=== PATIENT | female | born 1945 | race Caucasian/White ===

== ENCOUNTER 2021-03-14 11:05 | Outpatient (REF) | payer MEDICARE, SELFPAY ==
--- NOTE | ~2021-03-14 | MM_ITS ---
EXAMINATION: BONE DENSITOMETRY CLINICAL INDICATION: Osteoporosis. COMPARISON: Previous BD dated 03/14/2019 and baseline BD dated 03/06/2006. TECHNIQUE: Using a [email or web address] DXA System (software version: 13.1) manufactured by [email or web address], dual-energy x-ray absorptiometry was performed of the lumbar spine and left hip. The images are of good technical quality. Summary results are attached. FINDINGS: AP SPINE L1-L3 (excluding L4): The data of L1-L4 has been changed to exclude the L4 vertebral body, because degenerative changes at this level may cause overestimation of lumbar spine density. Current: BMD 0.878 g/cm2, Z-score -0.2, T-score -2.4, osteopenia, 2.1% increase from previous, 1.2% increase from baseline (<5% change is not significant). Prior: BMD 0.860 g/cm2. Baseline: BMD 0.868 g/cm2. LEFT FEMUR, NECK: Current: BMD 0.827 g/cm2, Z-score 0.7, T-score -1.5, osteopenia. Prior: BMD 0.812 g/cm2. Baseline: BMD 0.828 g/cm2. LEFT FEMUR, TOTAL: Current: BMD 0.903 g/cm2, Z-score 1.3, T-score -0.8, normal, 7.9% increase from previous, 2.4% increase from baseline (<5% change is not significant). Prior: BMD 0.837 g/cm2. Baseline: BMD 0.882 g/cm2. IDENTIFIED RISK FACTORS: Menopause, hysterectomy, glucocorticoids (chronic), history of fracture (adult), osteoporosis. HISTORY OF FRACTURE: Clavicle, wrist, and ankle. MEDICATIONS: Calcium, vitamin D, Prolia, ERT/SERMS. MM/XR DEXA axial skeleton IMPRESSION: 1. DIAGNOSIS: Osteopenia based on the lowest T-score value of -2.4 in the lumbar spine applying World Health Organization criteria. 2. 10-YEAR FRACTURE RISK PREDICTION, FRAX: Major osteoporotic fracture (clinical spine, forearm, hip or shoulder) 22.6%. Hip fracture 5.1%. 3. Treatment Recommendations: NOF guidelines recommend consideration for treatment in postmenopausal women and men age 50 and older presenting with the following: -A hip or vertebral (clinical or morphometric) fracture. -T-score less than or equal to -2.5 at the femoral neck or spine after appropriate evaluation to exclude secondary causes. -Low bone mass at the hip or spine and a 10-year fracture probability by FRAX of greater than or equal to 3% for hip fracture or greater than or equal to 20% for major osteoporotic fracture based on the [place] adapted WHO algorithm. 4. Other Recommendations: All treatment decisions require clinical judgment and consideration of individual patient factors, including patient preferences, comorbidities, previous drug use, risk factors not captured in the FRAX model (e.g. frailty, falls, vitamin D deficiency, increased bone turnover, interval significant decline in bone density) and possible under or overestimation of fracture risk by FRAX. Additional medical evaluation for secondary cause of low bone mineral density may be appropriate. FUTURE SCAN RECOMMENDATION: People with diagnosed cases of osteoporosis or at high risk for fracture should have regular bone mineral density tests. For patients eligible for Medicare, routine testing is allowed once every 2 years. The testing frequency can be increased to one year for patients who have rapidly progressing disease, those who are receiving or discontinuing medical therapy to restore bone mass, or have additional risk factors.
== END 2021-03-14 11:06 | disposition home or self-care (01) ==
LOC: HO.MAMMO 11:05
PROVIDERS: PCP Internal Medicine; Visit Provider Internal Medicine Endocrinology, Diabetes & Metabolism
DX: Z13.820 Encounter for screening for osteoporosis (principal); M81.0 Age-related osteoporosis without current pathological fracture; Z78.0 Asymptomatic menopausal state; Z79.899 Other long term (current) drug therapy
CPT/HCPCS: 77080

== ENCOUNTER 2023-04-10 10:39 | Outpatient (REF) | payer MEDICARE, SELFPAY ==
--- NOTE | ~2023-04-10 | MM_ITS ---
EXAMINATION: BONE DENSITOMETRY CLINICAL INDICATION: Age-related osteoporosis without current pathological fracture. COMPARISON: Previous BD dated 03/14/2021 and baseline BD dated 03/06/2006. TECHNIQUE: Using a [employer] DXA System (software version: 13.1) manufactured by [employer], dual-energy x-ray absorptiometry was performed of the lumbar spine and left hip. The images are of good technical quality. Summary results are attached. FINDINGS: LEFT FEMUR, NECK: Current: BMD 0.852 g/cm2, Z-score 1.0, T-score -1.3, osteopenia. Prior: BMD 0.827 g/cm2. Baseline: BMD 0.828 g/cm2. LEFT FEMUR, TOTAL: Current: BMD 0.912 g/cm2, Z-score 1.4, T-score -0.8, normal, 1.0% increase from previous, 3.4% increase from baseline (<5% change is not significant). Prior: BMD 0.903 g/cm2. Baseline: BMD 0.882 g/cm2. AP SPINE L1-L3 (excluding L4): The data of L1-L4 has been changed to exclude the L4 vertebral body, because degenerative sclerosis at this level may cause overestimation of lumbar spine density. Current: BMD 0.898 g/cm2, Z-score 0.0, T-score -2.3, osteopenia, 2.3% increase from previous, 3.5% increase from baseline (<5% change is not significant). Prior: BMD 0.878 g/cm2. Baseline: BMD 0.868 g/cm2. IDENTIFIED RISK FACTORS: Osteoporosis, history of fracture (adult), menopause, hysterectomy. HISTORY OF FRACTURE: Wrist, shoulder, other. MEDICATIONS: Calcium supplements or multivitamin, vitamin D, Prolia. MM/XR DEXA axial skeleton IMPRESSION: 1. DIAGNOSIS: Osteopenia based on the lowest T-score value of -2.3 in the lumbar spine applying World Health Organization criteria. 2. 10-YEAR FRACTURE RISK PREDICTION, FRAX: Not performed in this patient on estrogen or bone building treatments. 3. Treatment Recommendations: NOF guidelines recommend consideration for treatment in postmenopausal women and men age 50 and older presenting with the following: -A hip or vertebral (clinical or morphometric) fracture. -T-score less than or equal to -2.5 at the femoral neck or spine after appropriate evaluation to exclude secondary causes. -Low bone mass at the hip or spine and a 10-year fracture probability by FRAX of greater than or equal to 3% for hip fracture or greater than or equal to 20% for major osteoporotic fracture based on the [place] adapted WHO algorithm. 4. Other Recommendations: All treatment decisions require clinical judgment and consideration of individual patient factors, including patient preferences, comorbidities, previous drug use, risk factors not captured in the FRAX model (e.g. frailty, falls, vitamin D deficiency, increased bone turnover, interval significant decline in bone density) and possible under or overestimation of fracture risk by FRAX. Additional medical evaluation for secondary cause of low bone mineral density may be appropriate. FUTURE SCAN RECOMMENDATION: People with diagnosed cases of osteoporosis or at high risk for fracture should have regular bone mineral density tests. For patients eligible for Medicare, routine testing is allowed once every 2 years. The testing frequency can be increased to one year for patients who have rapidly progressing disease, those who are receiving or discontinuing medical therapy to restore bone mass, or have additional risk factors.
== END 2023-04-10 10:40 | disposition home or self-care (01) ==
LOC: HO.MAMMO 10:39
PROVIDERS: PCP Internal Medicine; Visit Provider Internal Medicine Endocrinology, Diabetes & Metabolism
DX: Z13.820 Encounter for screening for osteoporosis (principal); Z78.0 Asymptomatic menopausal state; M81.0 Age-related osteoporosis without current pathological fracture
CPT/HCPCS: 77080

== ENCOUNTER 2024-06-12 13:58 | Outpatient (REF) | payer MEDICARE, SELFPAY ==
--- NOTE | ~2024-06-12 | MM_ITS ---
EXAMINATION: DXA BONE DENSITY AXIAL HISTORY: Estrogen deficiency TECHNIQUE: [employer] Dual energy absorptiometry (DEXA) of the lumbar spine, total left hip, and femoral neck was performed. COMPARISON: Comparison is made with the prior examination dated 04/10/2023. FINDINGS: The bone mineral density of the lumbar spine is 0.849 with a T-score of -2.6, and a Z-score of -0.4. This represents a BMD change of 4.7% compared to the prior exam. This is not statistically significant. The bone mineral density of the left total hip is 0.919 with a T-score of -0.7, and a Z-score of 1.5. This represents BMD change of 0.8% compared to the prior exam. This is not statistically significant. The bone mineral density of the left femoral neck is 0.916 with a T-score of -0.9, and a Z-score of 1.5. This represents BMD change of 7.5% compared to the prior exam. MM/XR DEXA axial skeleton IMPRESSION: Based on bone mineral density, and according to World Health Organization (WHO) criteria, the diagnosis is consistent with osteoporosis. All bone density values are in grams per centimeter squared (g/cm2). Statistically, 68% of repeat scans fall within 1 SD (+/- 0.010 g/cm2 for AP spine L1-L4) and 1 SD (+/- 0.012 g/cm2 for femur total) FRAX is a trademark of the [employer]'s [place] for Metabolic Bone Disease, a World Health Organization (WHO) Collaborating Center. Electronically signed by: Nathaniel Cole MD 06/16/2024 12:25 PM [facility]
--- OUTSIDE RECORDS SUMMARY | 2024-06-12 17:52 | XMS_ITS | Data Portability ---
Author Organization [facility], , [facility] Address [address] [place] [address] Care Team Providers Care Linux Solaris Administrator Name Role Phone VÍCTOR MUELLER Primary Care Provider TITI CABRERA Dental Amalgam Processor Unavailable KARYN DWYER Physical Therapist Assessment Encounter Date Assessment Date Assessment LastModified by Organization Details LastModified Time 05/16/2022 05/16/2022 Osteoporosis on Prolia. 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 Also [employer]. [place] in [place] with Don Kroodsma Hyperlipidemia. 2020- agrees to start small dose of statin. PCP suggested prava which seems fine. 2021: PCP providing Rx. [email or web address] Not available 05/16/2022 14:24:38 05/15/2023 05/15/2023 Osteoporosis on Prolia since 05/2015. 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 Also [employer]. [place] in [place] with Don Kroodsma Hyperlipidemia. 2020- agrees to start small dose of statin. PCP suggested prava which seems fine. Since 2021: PCP providing Rx. Prava up to 40mg. also on cholestyramine for GI but that will also help LDL. Enhanced Provider time spent performing enhanced activities which may include, but are not limited to: reviewing tests, obtaining and/or reviewing patient history; ordering medications, test or procedures; EMR documentation; communication with patient, family, caregiver(s), VNA; pre-visit prep time communication with specialists, ER staff. Time spent: 36 (minutes) 06/06 [email or web address] Not available 05/15/2023 19:33:11 05/01/2024 05/01/2024 Osteoporosis on Prolia since 05/2015. 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 Also hikes. [place] in [place] with Teodoro Chin Hyperlipidemia. 2020- agrees to start small dose of statin. PCP suggested prava which seems fine. Since 2021: PCP providing Rx. Prava up to 40mg. also on cholestyramine for GI but that will also help LDL. Enhanced Provider time spent performing enhanced activities which may include, but are not limited to: reviewing tests, obtaining and/or reviewing patient history; ordering medications, test or procedures; EMR documentation; communication with patient, family, caregiver(s), VNA; pre-visit prep time communication with specialists, ER staff. Time spent: 38 (minutes) 05/06 05/06: order BMD ([place]). Check for markers of adynamic bone. Prolia today given when checked in. Review need to continue (given osteopenia on prev BMD)- may consider transition. Given very low NTx, check bone ALK PHOS (r/o adynamic bone) [email or web address] Not available 05/06/2024 15:32:20 Plan of Treatment Reminders Order Date Submit Date Provider Last Modified By Organization Details Last Modified Time Details Appointments Follow Up, 40 2024 09:00A Patty Cabrera MD Not available Not available Not available Follow Up, 40 2024 02:00P Patty Cabrera MD Not available Not available Not available Lab vitami n D, 25-hyd nancy, total, serum 2022 023 [facility], [address] [place] [address], [id number], 10/23/2022 14:10:08 renal functi on panel, serum 2022 023 [facility], [address] [place], [address], 10/24/2022 10:17:22 magnes ium, blood 2022 023 [facility], [address] [place] [address], [id number], 10/24/2022 10:17:23 vitami n D, 25-hyd nancy, total, serum 2022 023 [facility], [address] [place] [address], [id number], 04/30/2023 14:30:04 renal functi on panel, serum 2022 023 [facility], [address] [place] [address], [id number], 05/01/2023 09:28:59 magnes ium, blood 2022 023 [facility], [address] [place] [address], [id number], 05/01/2023 09:29:02 lipid panel, serum 2022 023 [facility], [address] [place] [address], [id number], 10/24/2022 10:17:21 lipid panel, serum 2022 023 [facility], [address] [place] [address], [id number], 05/01/2023 09:28:57 thyroi d peroxi dase (tpo) Ab, serum 2023 024 [facility], [address] [place] [address], [id number], 11/05/2023 14:01:10 TSH, serum or plasma 2023 024 [facility], [address] [place] [address], [id number], 11/02/2023 12:18:55 T4, free, serum 2023 024 [facility], [address] [place] [address], [id number], 11/02/2023 11:55:25 T4, free, serum 2023 024 [facility], [address] [place] [address], [id number], 04/23/2024 12:45:02 TSH, serum or plasma 2023 024 [facility], [address] [place] [address], [id number], 04/23/2024 14:29:19 magnes ium, blood 2023 024 [facility], [address] [place] [address], [id number], 11/02/2023 11:56:25 renal functi on panel, serum 2023 024 [facility], [address] [place] [address], [id number], 11/02/2023 11:56:25 collag en cross- linked N-telo peptid e (ntx), urine 2023 024 [facility], [address] [place] [address], [id number], 11/07/2023 14:13:55 vitami n D, 25-hyd nancy, total, serum 2023 024 [facility], [address] [place] [address], [id number], 11/02/2023 12:18:56 renal functi on panel, serum 2023 024 [facility], [address] [place] [address], [id number], 04/18/2024 13:10:08 magnes ium, blood 2023 024 [facility], [address] [place] [address], [id number], 04/18/2024 13:10:09 vitami n D, 25-hyd nancy, total, serum 2023 024 [facility], [address] [place] [address], [id number], 04/23/2024 14:29:19 collag en cross- linked N-telo peptid e (ntx), urine 2023 024 [facility], [address] [place] [address], [id number], 04/28/2024 12:18:15 thyroi d peroxi dase (tpo) Ab, serum 2023 024 [facility], [address] [place] [address], [id number], 06/02/2024 15:27:35 magnes ium, blood 2023 025 [facility], [address] [place] [address], [id number], 05/02/2024 11:28:34 renal functi on panel, serum 2023 025 [facility], [address] [place] [address], [id number], 05/02/2024 11:28:34 collag en cross- linked N-telo peptid e (ntx), urine 2023 025 [facility], [address] [place] [address], [id number], 05/02/2024 11:28:34 vitami n D, 25-hyd nancy, total, serum 2023 025 [facility], [address] [place] [address], 94076, 05/02/2024 11:28:34 alkali ne phosph atase, bone-s pecifi c, serum 2023 025 [facility], [address] [place] [address], [id number], 05/26/2024 13:08:00 PTH (parat hyroid hormon e), intact , serum or plasma 2023 025 [facility], [address] , [place], [address], 06/02/2024 15:30:00 Referral None record ed. Procedures None record ed. Surgeries None record ed. Imaging bone densit y - Please make sure done at same facili ty as before ([facility] Please report t-scor es all sites (both hips and spine and forear m)./la st was 1 2022 023 [facility], [address] [place] [address] [place], [id number], 04/12/2023 18:24:31 bone densit y - On prolia . Needs update for mediat ion monito ring.H x osteop orosis on Prolia .Pleas e provid e t-scor es for spine (speci fy which verteb cassie) and both hips. 2023 024 [facility], [facility], [place], [address], 05/08/2024 08:37:36 Medication Orders Prolia 60 mg/mL subcut aneous syring e 2022 023 sstuartchipki n [facility], [address], [address], [place], [place], [id number], 10/31/2022 19:03:15 Prolia 60 mg/mL subcut aneous syring e 2023 024 sstuartchipki n [facility], [address], [address], [place], [place], [id number], 05/15/2023 19:33:39 Prolia 60 mg/mL subcut aneous syring e 2023 024 sstuartchipki n [facility], [address], [address], [place], [place], [id number], 11/13/2023 19:05:43 Prolia 60 mg/mL subcut aneous syring e 2023 024 sstta n [facility], [address], [facility] [address], [place], [place], [id number], 05/06/2024 15:35:17 Patient TargetsNo targets recorded. Patient Instructions Encounter Date Encounter Id Patient Instructions Last Modified By Organization Details Last Modified Time 05/16/2022 [id number] - Continue to ta ke calcium (0326-6361 mg per day) and vitamin D (5292-9897 units per day). - Consider looking for opportunities for exercise or balance classes to help prevent falls. - Continue on pravastatin. Take in the evening. If any worsening of muscle aches/pains, stop medication and contact office. Not available 05/16/2022 09:19:27 1 year 40 min. Not available 0 05/16/2022 09:19:27 05/15/2023 [id number] - Continue to ta ke calcium (2526-8954 mg per day) and vitamin D (7056-2565 units per day). - Consider looking for opportunities for exercise or balance classes to help prevent falls. [email or web address] Not available 05/15/2023 19:31:20 Major but rare side effects of Prolia (and for most osteoporosis medications) are risk for atypical/unusual fractures and a risk for destruction of jaw bone (called osteonecrosis of jaw or ONJ). Prolia, when used for osteoporosis had rates about 0.4% (4-6 out of 1500 patients) followed for several years. Some patients have a decrease in calcium values after the Prolia injection- we check calcium levels periodically to make sure there is no significant change. The most common side effect from Prolia is some musculoskeletal (bone and joint) pain sometimes in the back or the extremities. Although the effect of the drug lasts 6 months, that doesn't mean it is circulating in your blood for that time. Prolia acts on a particular cellular messenger and the impact of that is what lasts 6 months. [email or web address] Not available 05/15/2023 19:32:31 05/01/2024 [id number] - Continue to ta ke calcium (4616-0149 mg per day) and vitamin D (2292-4401 units per day). - Consider looking for opportunities for exercise or balance classes to help prevent falls. [email or web address] Not available 05/06/2024 15:32:29 Major but rare side effects of Prolia (and for most osteoporosis medications) are risk for atypical/unusual fractures and a risk for destruction of jaw bone (called osteonecrosis of jaw or ONJ). Prolia, when used for osteoporosis had rates about 0.4% (4-6 out of 1500 patients) followed for several years. Some patients have a decrease in calcium values after the Prolia injection- we check calcium levels periodically to make sure there is no significant change. The most common side effect from Prolia is some musculoskeletal (bone and joint) pain sometimes in the back or the extremities. Although the effect of the drug lasts 6 months, that doesn't mean it is circulating in your blood for that time. Prolia acts on a particular cellular messenger and the impact of that is what lasts 6 months. [email or web address] Not available 05/06/2024 15:32:35 Reason for Referral None Reported. Results Created Date Observation Date Name Description Value Unit Range Abnormal Flag Note LastModifiedBy Organization Detail LastModifiedTime 04/28/20 22 04/28/2022 LIPID PANEL cholesterol 229 mg/dL <200 mg/dl Austyn able 200-2 39 mg/dl Borde rline High >240 mg/dl High Not Available [address], [address], 04/28/2022 15:15:44 04/28/20 22 04/28/2022 LIPID PANEL triglyceride s 56 mg/dL <150 mg/dL Madelaine l 150-1 99 mg/dL Borde rline High 200-4 99 mg/dL High >500 mg/dL Very High Not Available [address], [address], 04/28/2022 15:15:44 04/28/2004/28/2022 LIPID PANEL direct HDL 103 mg/dL <40 mg/dl - Major Risk for CHD >60 mg/dl - Negat momo Risk for CHD Not Available [address], [address], 04/28/2022 15:15:44 04/28/20 22 04/28/2022 PHOSP HOROU S phosphorous 4.40 mg/dL 2.50-4 .90 Not Available [address], [address], 04/28/2022 15:15:45 04/28/20 22 04/28/2022 MAGNE SIUM magnesium 2.0 mg/dL 1.8-2. 4 Not Available [address], [address], 04/28/2022 15:15:46 04/28/20 22 04/28/2022 LDL - CALCU LATED LDL - calculated 114.8 RISK CATEG ORY LDL GOAL _ CHD or CHD Risk Equiv alent s <100 mg/dl (10-y ear risk >20%) 2+ Risk Facto rs <130 mg/dl (10-y ear risk <= 20%) 0-1 Risk Facto r? <160 mg/dl ? Almos t all peopl e with 0-1 risk facto r have a 10 year risk <10%, thus 10 year risk asses ment in peopl e with 0-1 risk facto r is not della alexander. Not Available [address], [address], 04/28/2022 15:15:47 04/28/20 22 04/28/2022 COMP. METAB OLIC PANEL glucose 91 mg/dL 70-100 Not Available [address], [address], 04/28/2022 15:24:45 04/28/20 22 04/28/2022 COMP. METAB OLIC PANEL BUN 21 mg/dL 7-18 high Not Available [address], [address], 04/28/2022 15:24:45 04/28/20 22 04/28/2022 COMP. METAB OLIC PANEL creatinine 0.8 mg/dL 0.8-1. 3 Not Available [address], [address], 04/28/2022 15:24:45 04/28/20 22 04/28/2022 COMP. METAB OLIC PANEL B/C 26.3 ratio Not Available [address], [address], 04/28/2022 15:24:45 04/28/20 22 04/28/2022 COMP. METAB OLIC PANEL GFR >=60ML /MIN mL/mi n normal >=60m L/min - Madelaine l or midly reduc ed <60mL /min- Decre ased kidne y funct ion <15mL /min - Kidne y failu re [facility] calcu lates estim ated Glome rular Filtr ation Rate (eGFR ) using the Chron ic Kidne y Disea se Epide miolo gy Colla borat ion (CKD- EPI) Equat ion (Mai r et. al 2020) as recom ivelisse d by the Natio nal Kidne y Found ation . eGFR is based on age, serum creat inine , and sex. CKD-E PI does not calcu late eGFR by race, does not apply to child zach (age <18 years ), and shoul d not be used in pregn zachery. Not Available [address], [address], 04/28/2022 15:24:45 04/28/20 22 04/28/2022 COMP. METAB OLIC PANEL sodium 139 mmol/ L 136-14 5 Not Available [address], [address], 04/28/2022 15:24:45 04/28/20 22 04/28/2022 COMP. METAB OLIC PANEL potassium 4.5 mmol/ L 3.5-5. 1 Not Available [address], [address], 04/28/2022 15:24:45 04/28/20 22 04/28/2022 COMP. METAB OLIC PANEL chloride 103 mmol/ L 96-107 Not Available [address], [address], 04/28/2022 15:24:45 04/28/20 22 04/28/2022 COMP. METAB OLIC PANEL anion gap 5.7 5.0-15 .0 Not Available [address], [address], 04/28/2022 15:24:45 04/28/20 22 04/28/2022 COMP. METAB OLIC PANEL CO2 30 mmol/ L 21-32 Not Available [address], [address], 04/28/2022 15:24:45 04/28/20 22 04/28/2022 COMP. METAB OLIC PANEL calcium 9.2 mg/dL 8.5-10 .3 Not Available [address], [address], 04/28/2022 15:24:45 04/28/20 22 04/28/2022 COMP. METAB OLIC PANEL total protein 6.9 g/dL 6.4-8. 2 Not Available [address], [address], 04/28/2022 15:24:45 04/28/20 22 04/28/2022 COMP. METAB OLIC PANEL albumin 3.9 g/dL 3.4-5. 0 Not Available [address], [address], 04/28/2022 15:24:45 04/28/20 22 04/28/2022 COMP. METAB OLIC PANEL globulin 3.0 g/dL Not Available [address], [address], 04/28/2022 15:24:45 04/28/20 22 04/28/2022 COMP. METAB OLIC PANEL A/G 1.3 ratio 0.8-2. 0 Not Available [address], [address], 04/28/2022 15:24:45 04/28/20 22 04/28/2022 COMP. METAB OLIC PANEL total bilirubin 0.40 mg/dL 0.00-1 .00 Not Available [address], [address]365, 04/28/2022 15:24:45 04/28/20 22 04/28/2022 COMP. METAB OLIC PANEL AST 26 U/L 0-37 Not Available [address], [address], 04/28/2022 15:24:45 04/28/20 22 04/28/2022 COMP. METAB OLIC PANEL ALT 34 U/L 6-63 Not Available [address], [address], 04/28/2022 15:24:45 04/28/20 22 04/28/2022 COMP. METAB OLIC PANEL alk. phos. 67 U/L 50-136 Not Available [address], [address], 04/28/2022 15:24:45 04/28/20 22 04/28/2022 VITAM IN D 25-HY DROXY TOTAL vitamin D 25-hydroxy EIA 41.1 NG/mL 20.0-9 9.9 Thera py is based on measu remen t of total 25-OH D, with level s less than 20 ng/mL indic ative of Vitam in D defic iency . Level s betwe en 20ng/ mL and 30 ng/mL sugge st insuf ficie ncy. Optim al Level s are great er than 30 ng/mL . Not Available [address], [address], 04/28/2022 15:39:50 04/28/20 22 04/28/2022 TSH TSH 4.08 uIU/m L 0.50-6 .00 The Ameri can Colle ge of Endoc rinol ogy and Col[facility] can Thyro id Assoc iatio n recom mend goal TSH value s betwe en 0.4-4 .0 mIU/m L. Not Available [address], [address], 04/28/2022 15:46:45 10/24/19 23 10/23/2022 VITAM IN D 25-HY DROXY TOTAL vitamin D 25-hydroxy EIA 43.1 NG/mL 20.0-9 9.9 Thera py is based on measu remen t of total 25-OH D, with level s less than 20 ng/mL indic ative of Vitam in D defic iency . Level s betwe en 20ng/ mL and 30 ng/mL sugge st insuf ficie ncy. Optim al Level s are great er than 30 ng/mL . Not Available [address], [address], 10/23/2022 14:10:07 10/24/19 23 10/24/2022 LIPID PANEL cholesterol 207 mg/dL <200 mg/dl Austyn able 200-2 39 mg/dl Borde rline High >240 mg/dl High Not Available [address], [address], 10/24/2022 10:17:21 10/24/19 23 10/24/2022 LIPID PANEL triglyceride s 52 mg/dL <150 mg/dL Madelaine l 150-1 99 mg/dL Borde rline High 200-4 99 mg/dL High >500 mg/dL Very High Not Available [address], [address], 10/24/2022 10:17:21 10/24/19 23 10/24/2022 LIPID PANEL direct HDL 90 mg/dL <40 mg/dl - Major Risk for CHD >60 mg/dl - Negat momo Risk for CHD Not Available [address], [address], 10/24/2022 10:17:21 10/24/19 23 10/24/2022 RENAL PANEL glucose 89 mg/dL 70-100 Not Available [address], [address], 10/24/2022 10:17:22 10/24/19 23 10/24/2022 RENAL PANEL BUN 19 mg/dL 7-18 high Not Available [address], [address], 10/24/2022 10:17:22 10/24/19 23 10/24/2022 RENAL PANEL creatinine 0.7 mg/dL 0.8-1. 3 low Not Available [address], [address], 10/24/2022 10:17:22 10/24/19 23 10/24/2022 RENAL PANEL B/C 27.1 ratio Not Available [address], [address], 10/24/2022 10:17:22 10/24/19 23 10/24/2022 RENAL PANEL GFR >=60ML /MIN mL/mi n normal >=60m L/min - Madelaine l or midly reduc ed <60mL /min- Decre ased kidne y funct ion <15mL /min - Kidne y failu re [facility] calcu lates estim ated Glome rular Filtr ation Rate (eGFR ) using the Chron ic Kidne y Disea se Epide miolo gy Colla borat ion (CKD- EPI) Equat ion (Inke r et. al 2020) as recom ivelisse d by the Natio nal Kidne y Found ation . eGFR is based on age, serum creat inine , and sex. CKD-E PI does not calcu late eGFR by race, does not apply to child zach (age <18 years ), and shoul d not be used in pregn zachery. Not Available [address], [address], 10/24/2022 10:17:22 10/24/19 23 10/24/2022 RENAL PANEL sodium 139 mmol/ L 136-14 5 Not Available [address], [address], 10/24/2022 10:17:22 10/24/19 23 10/24/2022 RENAL PANEL potassium 4.5 mmol/ L 3.5-5. 1 Not Available [address], [address], 10/24/2022 10:17:22 10/24/19 23 10/24/2022 RENAL PANEL chloride 103 mmol/ L 96-107 Not Available [address], [address], 10/24/2022 10:17:22 10/24/19 23 10/24/2022 RENAL PANEL anion gap 7.8 5.0-15 .0 Not Available [address], [address], 10/24/2022 10:17:22 10/24/19 23 10/24/2022 RENAL PANEL CO2 28 mmol/ L 21-32 Not Available [address], [address], 10/24/2022 10:17:22 10/24/19 23 10/24/2022 RENAL PANEL calcium 9.0 mg/dL 8.5-10 .3 Not Available [address], [address], 10/24/2022 10:17:22 10/24/19 23 10/24/2022 RENAL PANEL albumin 3.9 g/dL 3.4-5. 0 Not Available [address], [address], 10/24/2022 10:17:22 10/24/19 23 10/24/2022 RENAL PANEL phosphorous 4.20 mg/dL 2.50-4 .90 Not Available [address], [address], 10/24/2022 10:17:22 10/24/19 23 10/24/2022 MAGNE SIUM magnesium 2.0 mg/dL 1.8-2. 4 Not Available [address], [address], 10/24/2022 10:17:23 10/24/19 23 10/24/2022 LDL - CALCU LATED LDL - calculated 106.6 RISK CATEG ORY LDL GOAL _ CHD or CHD Risk Equiv alent s <100 mg/dl (10-y ear risk >20%) 2+ Risk Facto rs <130 mg/dl (10-y ear risk <= 20%) 0-1 Risk Facto r? <160 mg/dl ? Almos t all peopl e with 0-1 risk facto r have a 10 year risk <10%, thus 10 year risk asses ment in peopl e with 0-1 risk facto r is not neces benjamin. Not Available [address], [address], 10/24/2022 10:17:24 04/27/20 23 04/30/2023 TSH TSH 5.42 uIU/m L 0.50-6 .00 The Ameri can Colle ge of Endoc rinol ogy and Ameri can Thyro id Assoc iatio n recom mend goal TSH value s betwe en 0.4-4 .0 mIU/m L. Not Available [address], [address], 04/30/2023 14:30:02 04/27/20 23 04/30/2023 VITAM IN D 25-HY DROXY TOTAL vitamin D 25-hydroxy EIA 42.3 NG/mL 20.0-9 9.9 Thera py is based on measu remen t of total 25-OH D, with level s less than 20 ng/mL indic ative of Vitam in D defic iency . Level s betwe en 20ng/ mL and 30 ng/mL sugge st insuf ficie ncy. Optim al Level s are great er than 30 ng/mL . Not Available [address], [address], 04/30/2023 14:30:04 04/27/20 23 05/01/2023 LIPID PANEL cholesterol 178 mg/dL <200 mg/dl Austyn able 200-2 39 mg/dl Borde rline High >240 mg/dl High Not Available [address], [address], 05/01/2023 09:28:57 04/27/2005/01/2023 LIPID PANEL triglyceride s 56 mg/dL <150 mg/dL Madelaine l 150-1 99 mg/dL Borde rline High 200-4 99 mg/dL High >500 mg/dL Very High Not Available [address], [address], 05/01/2023 09:28:57 04/27/20 23 05/01/2023 LIPID PANEL direct HDL 87 mg/dL <40 mg/dl - Major Risk for CHD >60 mg/dl - Negat momo Risk for CHD Not Available [address], [address], 05/01/2023 09:28:57 04/27/20 23 05/01/2023 RENAL PANEL glucose 86 mg/dL 70-100 Not Available [address], [address], 05/01/2023 09:28:59 04/27/20 23 05/01/2023 RENAL PANEL BUN 13 mg/dL 7-18 Not Available [address], [address], 05/01/2023 09:28:59 04/27/20 23 05/01/2023 RENAL PANEL creatinine 0.8 mg/dL 0.8-1. 3 Not Available [address], [address], 05/01/2023 09:28:59 04/27/20 23 05/01/2023 RENAL PANEL B/C 16.3 ratio Not Available [address], [address], 05/01/2023 09:28:59 04/27/20 23 05/01/2023 RENAL PANEL GFR >=60ML /MIN mL/mi n normal >=60m L/min - Madelaine l or midly reduc ed <60mL /min- Decre ased kidne y funct ion <15mL /min - Kidne y failu re [facility] calcu lates estim ated Glome rular Filtr ation Rate (eGFR ) using the Chron ic Kidne y Disea se Epide miolo gy Colla borat ion (CKD- EPI) Equat ion (Mai r et. al 2020) as recom ivelisse d by the Natio nal Kidne y Found ation . eGFR is based on age, serum creat inine , and sex. CKD-E PI does not calcu late eGFR by race, does not apply to child zach (age <18 years ), and shoul d not be used in pregn zachery. Not Available [address], [address], 05/01/2023 09:28:59 04/27/20 23 05/01/2023 RENAL PANEL sodium 137 mmol/ L 136-14 5 Not Available [address], [address], 05/01/2023 09:28:59 04/27/20 23 05/01/2023 RENAL PANEL potassium 5.1 mmol/ L 3.5-5. 1 Not Available [address], [address], 05/01/2023 09:28:59 04/27/20 23 05/01/2023 RENAL PANEL chloride 101 mmol/ L 96-107 Not Available [address], [address], 05/01/2023 09:28:59 04/27/20 23 05/01/2023 RENAL PANEL anion gap 5.5 5.0-15 .0 Not Available [address], [address], 05/01/2023 09:28:59 04/27/20 23 05/01/2023 RENAL PANEL CO2 31 mmol/ L 21-32 Not Available [address], [address], 05/01/2023 09:28:59 04/27/20 23 05/01/2023 RENAL PANEL calcium 8.9 mg/dL 8.5-10 .3 Not Available [address], [address], 05/01/2023 09:28:59 04/27/20 23 05/01/2023 RENAL PANEL albumin 3.7 g/dL 3.4-5. 0 Not Available [address], [address], 05/01/2023 09:28:59 04/27/20 23 05/01/2023 RENAL PANEL phosphorous 4.30 mg/dL 2.50-4 .90 Not Available [address], [address], 05/01/2023 09:28:59 04/27/20 23 05/01/2023 DIREC T LDL direct LDL 69 mg/dL RISK CATEG ORY LDL GOAL _ CHD or CHD Risk Equiv alent s <100 mg/dl (10-y ear risk >20%) 2+ Risk Facto rs <130 mg/dl (10-y ear risk <= 20%) 0-1 Risk Facto r? <160 mg/dl ? Almos t all peopl e with 0-1 risk facto r have a 10 year risk <10%, thus 10 year risk asses ment in peopl e with 0-1 risk facto r is not della alexander. Not Available [address], [address], 05/01/2023 09:29:01 04/27/20 23 05/01/2023 MAGNE SIUM magnesium 1.9 mg/dL 1.8-2. 4 Not Available [address], [address], 05/01/2023 09:29:02 11/01/19 24 11/02/2023 FREE T4 free T4 0.82 NG/dL 0.75-1 .54 Not Available [address], [address], 11/02/2023 11:55:25 11/01/19 24 11/02/2023 RENAL PANEL glucose 111 mg/dL 70-100 high Not Available [address], [address], 11/02/2023 11:56:25 11/01/19 24 11/02/2023 RENAL PANEL BUN 15 mg/dL 7-18 Not Available [address], [address], 11/02/2023 11:56:25 11/01/19 24 11/02/2023 RENAL PANEL creatinine 0.9 mg/dL 0.8-1. 3 Not Available [address], [address], 11/02/2023 11:56:25 11/01/19 24 11/02/2023 RENAL PANEL B/C 16.7 ratio Not Available [address], [address], 11/02/2023 11:56:25 11/01/19 24 11/02/2023 RENAL PANEL GFR >=60ML /MIN mL/mi n normal >=60m L/min - Madelaine l or midly reduc ed <60mL /min- Decre ased kidne y funct ion <15mL /min - Kidne y failu re [facility] calcu lates estim ated Glome rular Filtr ation Rate (eGFR ) using the Chron ic Kidne y Disea se Epide miolo gy Colla borat ion (CKD- EPI) Equat ion (Mai sterling et. al 2020) as recom ivelisse d by the Natio nal Kidne y Found ation . eGFR is based on age, serum creat inine , and sex. CKD-E PI does not calcu late eGFR by race, does not apply to child zach (age <18 years ), and shoul d not be used in pregn zachery. Not Available [address], [address], 11/02/2023 11:56:25 11/01/19 24 11/02/2023 RENAL PANEL sodium 138 mmol/ L 136-14 5 Not Available [address], [address], 11/02/2023 11:56:25 11/01/19 24 11/02/2023 RENAL PANEL potassium 4.7 mmol/ L 3.5-5. 1 Not Available [address], [address], 11/02/2023 11:56:25 11/01/19 24 11/02/2023 RENAL PANEL chloride 101 mmol/ L 96-107 Not Available [address], [address], 11/02/2023 11:56:25 11/01/19 24 11/02/2023 RENAL PANEL anion gap 10.1 5.0-15 .0 Not Available [address], [address], 11/02/2023 11:56:25 11/01/19 24 11/02/2023 RENAL PANEL CO2 27 mmol/ L 21-32 Not Available [address], [address], 11/02/2023 11:56:25 11/01/19 24 11/02/2023 RENAL PANEL calcium 9.1 mg/dL 8.5-10 .3 Not Available [address], [address], 11/02/2023 11:56:25 11/01/19 24 11/02/2023 RENAL PANEL albumin 3.9 g/dL 3.4-5. 0 Not Available [address], [address], 11/02/2023 11:56:25 11/01/19 24 11/02/2023 RENAL PANEL phosphorous 3.00 mg/dL 2.50-4 .90 Not Available [address], [address], 11/02/2023 11:56:25 11/01/19 24 11/02/2023 MAGNE SIUM magnesium 1.8 mg/dL 1.8-2. 4 Not Available [address], [address], 11/02/2023 11:56:25 11/01/19 24 11/02/2023 TSH TSH 4.05 uIU/m L 0.50-6 .00 The Ameri can Colle ge of Endoc rinol ogy and Ameri can Thyro id Assoc iatio n recom mend goal TSH value s betwe en 0.4-4 .0 mIU/m L. Not Available [address], [address], 11/02/2023 12:18:55 11/01/19 24 11/02/2023 VITAM IN D 25-HY DROXY TOTAL vitamin D 25-hydroxy EIA 40.9 NG/mL 20.0-9 9.9 Thera py is based on measu remen t of total 25-OH D, with level s less than 20 ng/mL indic ative of Vitam in D defic iency . Level s betwe en 20ng/ mL and 30 ng/mL sugge st insuf ficie ncy. Optim al Level s are great er than 30 ng/mL . Not Available [address], [address], 11/02/2023 12:18:56 11/01/19 24 11/05/2023 THYRO ID PEROX IDASE ANTIB DANUTA thyroid peroxidase antibody <3.0 IU/mL 0.0-10 .0 < Not Available [address], [address], 11/05/2023 14:01:10 11/01/19 24 11/07/2023 COLLA GEN CROSS -LINK ED N-TEL OPEPT JUDITH (NTX) , U N telopeptide (ntx) 9 nm_bc e/mm_ creat see note Preme nopau emily Femal es: 4 - 64 nM BCE/m M creat Resul ts are prima rily used for monit oring the respo nse to thera py. A value withi n the preme nopau emily range does not rule out osteo poros is nor the need for thera py Units of Measu re: nM BCE/m M creat Not Available [facility] [address], [address], 11/07/2023 14:13:55 11/01/19 24 11/07/2023 COLLA GEN CROSS -LINK ED N-TEL OPEPT JUDITH (NTX) , U creatinine, random urine 95 mg/dL 20-275 Not Available [facility] [address], [address], 11/07/2023 14:13:55 04/17/20 24 04/18/2024 RENAL PANEL glucose 93 mg/dL 70-100 Not Available [address], [address], 04/18/2024 13:10:08 04/17/20 24 04/18/2024 RENAL PANEL BUN 19 mg/dL 7-18 high Not Available [address], [address], 04/18/2024 13:10:08 04/17/20 24 04/18/2024 RENAL PANEL creatinine 0.8 mg/dL 0.8-1. 3 Not Available [address], [address], 04/18/2024 13:10:08 04/17/20 24 04/18/2024 RENAL PANEL B/C 23.8 ratio Not Available [address], [address], 04/18/2024 13:10:08 04/17/20 24 04/18/2024 RENAL PANEL GFR >=60ML /MIN mL/mi n normal >=60m L/min - Madelaine l or midly reduc ed <60mL /min- Decre ased kidne y funct ion <15mL /min - Kidne y failu re [facility] calcu lates estim ated Glome rular Filtr ation Rate (eGFR ) using the Chron ic Kidne y Disea se Epide miolo gy Colla borat ion (CKD- EPI) Equat ion (Mai r et. al 2020) as recom ivelisse d by the Natio nal Kidne y Found ation . eGFR is based on age, serum creat inine , and sex. CKD-E PI does not calcu late eGFR by race, does not apply to child zach (age <18 years ), and shoul d not be used in pregn zachery. Not Available [address], [address], 04/18/2024 13:10:08 04/17/20 24 04/18/2024 RENAL PANEL sodium 142 mmol/ L 136-14 5 Not Available [address], [address], 04/18/2024 13:10:08 04/17/20 24 04/18/2024 RENAL PANEL potassium 4.8 mmol/ L 3.5-5. 1 Not Available [address], [address], 04/18/2024 13:10:08 04/17/20 24 04/18/2024 RENAL PANEL chloride 104 mmol/ L 96-107 Not Available [address], [address], 04/18/2024 13:10:08 04/17/20 24 04/18/2024 RENAL PANEL anion gap 7.2 5.0-15 .0 Not Available [address], [address], 04/18/2024 13:10:08 04/17/20 24 04/18/2024 RENAL PANEL CO2 31 mmol/ L 21-32 Not Available [address], [address], 04/18/2024 13:10:08 04/17/20 24 04/18/2024 RENAL PANEL calcium 9.2 mg/dL 8.5-10 .3 Not Available [address], [address], 04/18/2024 13:10:08 04/17/20 24 04/18/2024 RENAL PANEL albumin 3.8 g/dL 3.4-5. 0 Not Available [address], [address], 04/18/2024 13:10:08 04/17/20 24 04/18/2024 RENAL PANEL phosphorous 4.20 mg/dL 2.50-4 .90 Not Available [address], [address], 04/18/2024 13:10:08 04/17/20 24 04/18/2024 MAGNE SIUM magnesium 2.1 mg/dL 1.8-2. 4 Not Available [address], [address], 04/18/2024 13:10:09 04/17/20 24 04/23/2024 FREE T4 free T4 0.94 NG/dL 0.75-1 .54 Not Available [address], [address], 04/23/2024 12:45:02 04/17/20 24 04/23/2024 TSH TSH 4.57 uIU/m L 0.50-6 .00 The Ameri can Colle ge of Endoc rinol ogy and Ammorris can Thyro id Assoc iatio n recom mend goal TSH value s betwe en 0.4-4 .0 mIU/m L. Not Available [address], [address], 04/23/2024 14:29:19 04/17/20 24 04/23/2024 VITAM IN D 25-HY DROXY TOTAL vitamin D 25-hydroxy EIA 44.5 NG/mL 20.0-9 9.9 Thera py is based on measu remen t of total 25-OH D, with level s less than 20 ng/mL indic ative of Vitam in D defic iency . Level s betwe en 20ng/ mL and 30 ng/mL sugge st insuf ficie ncy. Optim al Level s are great er than 30 ng/mL . Not Available [address], [address], 04/23/2024 14:29:19 04/17/20 24 04/28/2024 COLLA GEN CROSS -LINK ED N-TEL OPEPT JUDITH (NTX) , U N telopeptide (ntx) SEE NOTE nm_bc e/mm_ creat <4 nM BCE/m M creat Preme nopau emily Femal es: 4 - 64 nM BCE/m M creat Resul ts are prima rily used for monit oring the respo nse to thera py. A value withi n the preme nopau emily range does not rule out osteo poros is nor the need for thera py. Units of Measu re: nM BCE/m M creat Not Available [facility] [address], [place], [address], 04/28/2024 12:18:15 04/17/20 24 04/28/2024 COLLA GEN CROSS -LINK ED N-TEL OPEPT JUDITH (NTX) , U creatinine, random urine 40 mg/dL 20-275 Not Available [facility] [address] [place], [place], [address], 04/28/2024 12:18:15 05/23/19 25 05/26/2024 ALKAL INE PHOSP HATAS E, BONE SPECI FIC alkaline phosphatase, bone specific 6.6 mcg/L see note Unabl e to flag abnor mal resul t(s), pleas e refer to refer ence range (s) below : Refer ence Range s for Alkal ine Phosp hatas e (mcg/ L): Age Femal es Males 0 - 1 month Not Estab lishe d Not Estab lishe d 2 - 24 month s 25.4- 124.0 25.4- 124.0 25 month s - 5 years Not Estab lishe d Not Estab lishe d 6 - 9 years 41.0- 134.6 41.0- 134.6 10 - 13 years 24.2- 154.2 43.8- 177.4 14 - 17 years 10.5- 75.2 13.7- 128.0 18 - 29 years 4.7- 17.8 8.4- 29.3 30 - 39 years 5.3- 19.5 7.7- 21.3 40 - 49 years 5.0- 18.8 7.0- 18.3 50 - 68 years 7.6- 14.9 50 - 76 years 5.6- 29.0 Preme nopau emily 35 - 45 years 5.0- 18.2 Ped iatri c data from Int J Biol Marke rs (1995 ) 11:15 9-164 Refer ence Range , Preme nopau emily (mcg/ L) 35-45 years 5.0-1 8.2 Not Available [facility] [address], [place], [address], 05/26/2024 13:08:00 05/23/19 25 05/28/2024 LIPOP ROTEI N (A) lipoprotein (A) 90 nmol/ L <75 high Risk Categ ory Optim al < 75 nmol/ L Moder ate 75 - 125 nmol/ L High > 125 nmol/ L Cardi ovasc ular event risk categ ory cut point s (opti mal, moder ate, high) are based on Michelle Burnham. JAC 2017; 69:69 2-711 . Not Available [facility] [place] [facility] [address], [address], 05/28/2024 13:33:25 05/23/19 25 05/28/2024 CARDI O IQ(R) APOLI POPRO TEIN B apolipoprote in B 75 mg/dL <90 Risk: Optim al <90 mg/dL ; Moder ate 90-11 9 mg/dL ; High >= 120 mg/dL ; Cardi ovasc ular event risk categ ory cut point s (opti mal, moder ate, high) are based on Natio nal Lipid Assoc iatio n recom menda tiemili - Junior carvajal TA et al. J of Clin Lipid . 2015; 9: 129-1 69 and Misty CANDELARIA et al. Endoc r Pract . 2017; 23(Epstein ppl 2):1- 87. Not Available [facility] [place] [facility] [address], [address], 05/28/2024 13:33:27 05/23/19 25 06/02/2024 THYRO ID PEROX IDASE ANTIB DANUTA thyroid peroxidase antibody <3.0 IU/mL 0.0-10 .0 < Not Available [address], [address], 06/02/2024 15:27:35 05/23/1906/02/2024 PTH INTAC T PTH intact 56.4 pg/mL 9.6-66 .3 Not Available [address], [address], 06/02/2024 15:30:00 04/12/20 23 04/10/2023 bone densi ty No observ ation record ed. [email or web address] [address] [place], [address], 05/15/2023 15:26:29 Result Notes None recorded. 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 69635016 Completed 04/02/2013 Not Available [facility] 3 02:04:08 Low back pain 516068602 Active Not Available [facility] 3 03:15:05 Hypothyroi dism 75004421 Active 2008 Candelaria Kristine [facility] 4 16:26:45 Knee pain Completed 04/02/2013 Not Available [facility] 3 02:00:43 Vitamin D deficiency 37995990 Active Eliza Austin PA-C [address] [place] [address], [phone] , [facility] 4 09:14:59 Cervical segmental dysfunctio n 952178433 Active Karyn Grady i PT [address] [place], [address] , [facility] 6 06:19:35 Thyroid hormone tests outside reference range 727941767 Active Titi Cabrera MD [address] [place], [address] , [facility] 4 15:45:50 Fatigue 64846393 Active Linda Arriola RN BSN [address] [place] [address], [phone] , [facility] 5 15:52:36 Problem Notes None recorded. Procedures Surgical History Date Name Laterality Status Provider Name and Address Organization Details Recorded Time 10/06/19 Physical Activity Counselling completed Briana Mauricio OT [address] [place], [address], [facility] 10/05/2020 14:24:38 10/06/19 21 [address]: OT Eval, Moderate Complexity completed Briana Mauricio, OT [address] [place], [address], [facility] 10/05/2020 14:24:45 05/21/19 19 operative procedure on knee completed Emelina Maldonado LPN [facility] 10/01/2018 08:43:52 05/04/20 14 Current <strong>Medicati ons</strong> Documented (G8427) completed Marycruz Tiwari [address] [place] [address], [phone], [facility] 05/04/2014 10:07:15 05/01/20 14 Current <strong>Medicati ons</strong> Documented (G8427) completed Marycruzmelquiades Tiwari [address] [place] [address], [phone], [facility] 05/01/2014 09:44:32 04/28/20 14 Current <strong>Medicati ons</strong> Documented (G8427) completed Marycruz Tiwari [address] [place] [address], [phone], [facility] 04/28/2014 12:46:28 04/23/20 14 <strong>Pain</st katiuska> Assessment and Follow-up (G8730) completed Marycruz Tiwari [address] [place] [address], [phone], [facility] 04/23/2014 07:45:09 04/23/20 14 <strong>Falls</s caesar> Risk Assessment - No Risk (1101F) completed Marycruz Tiwari [address] [place] [address], [phone], [facility] 04/23/2014 07:45:09 04/23/20 14 <strong>Function al</strong> Outcome w/ POC (G8539) completed Marycruzmelquiades Tiwari [address] [place] [address], [phone], [facility] 04/23/2014 07:45:09 04/23/20 14 <strong>BMI</str marci> not Documented, Reason not Given (G8421) completed Marycruzmelquiades Tiwari [address] [place] [address], [address], [facility] 04/23/2014 08:49:15 04/23/20 14 Current <strong>Medicati ons</strong> Documented (G8427) completed Marycruz Tiwari [address] [place] [address], [phone], [facility] 04/23/2014 07:45:09 04/23/20 14 [address]: PT Evaluation completed Marycruz Tiwari [address] [place] [address], [phone], [facility] 04/23/2014 07:45:09 04/15/20 14 IV Therapy completed Isidra Lechuga [facility] 04/15/2014 14:58:41 03/12/20 13 <strong>Function al</strong> Outcome w/ POC (G8539) completed Beata Vincent, PT [address] [place], [address], [facility] 03/12/2013 13:26:10 03/05/20 13 Treatment and Advice completed Beata Vincent, PT [address] [place], [address], [facility] 03/05/2013 13:13:15 02/15/20 13 <strong>Pain</st katiuska> Assessment and Follow-up (G8730) completed Beata Vincent, PT [address] [place], [address], [facility] 02/14/2013 10:10:22 02/15/20 13 <strong>Falls</s caesar> Risk Assessment - No Risk (1101F) completed Beata Vincent, PT [address] [place], [address], [facility] 02/14/2013 10:10:22 02/15/20 13 <strong>Function al</strong> Outcome - No Deficiencies (G8542) completed Beata Vincent, PT [address] [place], [address], [facility] 02/14/2013 10:10:22 02/15/20 13 Treatment and Advice completed Beata Vincent, PT [address] [place], [address], [facility] 02/14/2013 10:10:22 Imaging Results Imaging Date Name Status LastModified by Organiz ation Details LastModified Time 04/10/2023 bone density completed [email or web address] [address] [place], [address], 05/15/2023 15:26:29 Procedure Notes None recorded. Medical Equipment None Reported. Allergies No known drug allergies Medications Name Sig Start Date Stop Date Status Note LastModified by Organization Details LastModified Time Prescript ion - Prior Authoriza tion Request 05/16 completed IV Boniva Not Available Not Available Not Available pravastat in sodium 20 mg tabs 05/23 completed Not Available Not Available Not Available celecoxib 200 mg capsule Take 1 capsule twice a day by oral route. active as needed Not Available Not Available Not Available tretinoin 0.1 % topical cream active Not Available Not Available Not Available latanopro st 0.005 % eye drops 05/17 completed Not Available Not Available Not Available buspirone 5 mg tablet TAKE 1 TABLET BY MOUTH 3 TIMES A DAY BEFORE MEALS. 05/15 completed Not Available Not Available Not Available magnesium 500 mg tablet Take 1 tablet every day by oral route. 05/15 completed Not Available Not Available Not Available Estring 2 mg (7.5 mcg/24 hour) vaginal ring active Not Available Not Available Not Available doxycycli ne hyclate 100 mg capsule TAKE ONE CAPSULE BY MOUTH TWICE A DAY active Not Available Not Available No t Available tizanidin e 2 mg tablet active as needed Not Available Not Available Not Available Drisdol 1,250 mcg (50,000 unit) capsule Take one capsule weekly 2008 active Not Available Not Available Not Avai lable azithromy hollie 250 mg tablet active Not Available Not Available No t Available pravastat in 40 mg tablet active Not Available Not Available Not Available ofloxacin 0.3 % eye drops 05/17 completed Not Available Not Available Not Available tolterodi ne ER 4 mg capsule,e xtended release 24 hr Take 1 capsule every day by oral route. 05/16 completed Not Available Not Available Not Available hydrocodo ne 5 mg-acetam inophen 325 mg tablet 10/01 completed Not Available Not Available Not Available atovaquon e 250 mg-progua nil 100 mg tablet active Not Available Not Available No t Available ondansetr on HCl 4 mg tablet 10/01 completed Not Available Not Available Not Available simvastat in 10 mg tablet Take 1 tablet every day by oral route for 30 days. 05/23 completed Not Available Not Available Not Available acetazola mide 250 mg tablet TAKE 1 TABLET BY MOUTH TWICE A DAY 05/01 completed Not Available Not Available Not Available sulfameth oxazole 800 mg-trimet hoprim 160 mg tablet TAKE 1 TABLET BY MOUTH EVERY 12 HOURS FOR 10 DAYS 05/17 completed Not Available Not Available Not Available nortripty line 25 mg capsule active Not Available Not Available Not Available prednisol one acetate 1 % eye drops,stacy pension PLACE 1 DROP INTO THE RIGHT EYE EVERY TWO HOURS active Not Available Not Available No t Available baclofen 10 mg tablet active as needed Not Available Not Available Not Available cephalexi n 500 mg capsule TAKE 1 CAPSULE FOUR TIMES A DAY 05/23 completed Not Available Not Available Not Available erythromy hollie 5 mg/gram (0.5 %) eye ointment 05/23 completed Not Available Not Available Not Available nortripty line 10 mg capsule 05/16 completed Not Available Not Available Not Available buspirone 10 mg tablet Take 1 tablet twice a day by oral route. active Not Available Not Available No t Available promethaz ine 25 mg tablet active as needed Not Available Not Available Not Available brimonidi ne 0.2 % eye drops active taking twice daily Not Available Not Available Not Available Climara 0.025 mg/24 hr transderm al patch active Uses 1/2 patch weekly Not Available Not Available Not Available Viactiv 500 mg-100 unit-40 mcg chewable tablet 03/05 completed Take 1:00 tab. b.i.d. Not Available Not Available Not Available dorzolami de 22.3 mg-timolo l 6.8 mg/mL eye drops active Not Available Not Available Not Available pravastat in 20 mg tablet 05/15 completed Not Available Not Available Not Available azithromy hollie 200 mg/5 mL oral suspensio n TAKE 5 ML (200 MG TOTAL) BY MOUTH DAILY. 05/16 completed Not Available Not Available Not Available methylpre dnisolone 4 mg tablets in a dose pack 05/23 completed Not Available Not Available Not Available doxycycli ne hyclate 100 mg tablet TAKE 1 TABLET BY MOUTH TWICE A DAY FOR 21 DAYS active Not Available Not Available No t Available cholestyr amine (with sugar) 4 gram powder for susp in a packet active as needed Not Available Not Available Not Available nitrofura ntoin monohydra te/macroc rystals 100 mg capsule active as needed Not Available Not Available Not Available solifenac in 5 mg tablet 05/15 completed pt has 10mg 1 tab as needed daily Not Available Not Available Not Available solifenac in 10 mg tablet active as needed Not Available Not Available Not Available Glucosami ne active unknow dose, takes sometime s Not Available Not Available Not Available Marinol 05/17 completed Uses 2.5mg PO PRN Not Available Not Available Not Available Vitamin D3 04/01 completed Takes one tab daily 500 mg. Not Available Not Available Not Available Celebrex 04/01 completed as needed Not Available Not Available Not Available Vitamin E-400 03/05 completed one tab daily Not Available Not Available Not Available multivita min active Take 1 tab twice daily Not Available Not Available Not Available Vitamin D3 10 mcg (400 unit) capsule 05/17 completed 9500 IU daily Not Available Not Available Not Available sodium fluoride 1.1 %-potassi um nitrate 5 % dental paste 05/23 completed Not Available Not Available Not Available ibandrona te 3 mg/3 mL intraveno us syringe Infuse 3mg (3ml) IV every 3 months (to be administ ered by at office) 2013 active Not Available Not Available Not Avai lable Prolia 60 mg/mL subcutane ous syringe INJECT 60MG SUBCUTAN EOUSLY EVERY 6 MONTHS 2023 active Not Available Not Available Not Avai lable Shingrix (PF) 50 mcg/0.5 mL intramusc ular suspensio n, kit 05/16 completed Not Available Not Available Not Available Fluad Quad (65yr up)(PF) 60 mcg (15 mcg x 4)/0.5mL IM syringe ADM 0.5ML IM UTD 05/23 completed Not Available Not Available Not Available Paxlovid 300 mg (150 mg x 2)-100 mg tablets in a dose pack active Not Available Not Available Not Available Clenpiq 10 mg-3.5 gram-12 gram/175 mL oral solution 05/01 completed Not Available Not Available Not Available Vitals Date Recorded Body weight Provider Name an d Address Organization Details Last Updated DateTime 05/16/2022 74029.09 g [facility]22 13:34:44 Date Recorded Body mass index (BMI) Body height Provider Name and Address Organization Details Last Updated DateTime 05/16/2022 21.5 kg/m2 154.69 cm Shae Anand [facility] 05/16/2022 13:34:53 Date Recorded Heart rate Provider Name an d Address Organization Details Last Updated DateTime 05/16/2022 74 /min [facility]/16/2022 13:49:11 Date Recorded Body height Provider Name an d Address Organization Details Last Updated DateTime 05/15/2023 154.94 cm [facility]/15/2023 14:56:47 Date Recorded Body mass index (BMI) Body weight Provider Name and Address Organization Details Last Updated DateTime 05/15/2023 21.4 kg/m2 56517.37 [facility] 14:56:43 Date Recorded Heart rate Provider Name an d Address Organization Details Last Updated DateTime 05/15/2023 65 /min Shae Lively [facility] 05/15/2023 15:05:52 Date Recorded Body height Provider Name an d Address Organization Details Last Updated DateTime 05/01/2024 153.67 cm [facility]01[facility]24 15:16:30 Date Recorded Body mass index (BMI) Body weight Provider Name and Address Organization Details Last Updated DateTime 05/01/2024 21.6 kg/m2 62711.5 g [facility] 15:16:26 Date Recorded Heart rate Provider Name an d Address Organization Details Last Updated DateTime 05/01/2024 80 /min Shae Michel [facility] 05/01/2024 15:25:46 Date Recorded Systolic blood pressure Diastolic blood pressure Provider Name and Address Organization Details Last Updated DateTime 05/16/2022 104 mm[Hg] 69 mm[Hg] Shae Michel [facility] 05/16/2022 13:48:36 Date Recorded Systolic blood pressure Diastolic blood pressure Provider Name and Address Organization Details Last Updated DateTime 05/15/2023 108 mm[Hg] 63 mm[Hg] Shae Michel [facility] 05/15/2023 15:05:37 Date Recorded Systolic blood pressure Diastolic blood pressure Provider Name and Address Organization Details Last Updated DateTime 05/01/2024 107 mm[Hg] 70 mm[Hg] Shae Michel [facility] 05/01/2024 15:25:45 Social History Question Answer Notes LastModified by Organizat ion Details LastModified Time Tobacco Smoking Status Never [facility]oker [facility]/2011 04:53:49 What Is Your Level Of Alcohol Consumption? Occasional Information not available 05/15/2023 Which Illicit Or Recreational Drugs Have You Used? Medical Marijuana Tinctures Canabis Daily Information not available 05/15/2023 Education Post Graduate Information not available 03/30/2011 What Is Your Occupation? [employer] [email or web address] Information not available 03/30/2011 CCM Consent Discussion 05/17/2017 [email or web address] Information not available 05/17/2017 Marital Status Information not available 03/30/2011 What Was The Date Of Your Most Recent Tobacco Screening? 10/01/2018 Information not available 12/04/2018 How Many Children Do You Have? 1 [email or web address] Information not available 03/30/2011 Do You Use Any Illicit Or Recreational Drugs? Yes [email or web address] Information not available 05/23/2021 Sex: Unknown Functional Status None recorded. Mental Status None recorded. Family History Relationship Description Onset Age of this Age Resolved Age Notes LastModified by Organization Details LastModified Time Father Malignant tumor of prostate [email or web address] n Not available 04/16/2015 15:26:23 Notes:Father-living 92, colo n and prostate cancer Mother- 69 stomach and breast cancer 1 sister -living 60-arthritis, IFG, obesity, fractures of ankles x 2 and no BMD. 05/25- dad alive at 93. has CHF. sister is alive- obesity, DM, 07/24- 95 next week. sister is OK. 36 y.o. son is healthy. 05/27- dad still OK at 95. Had ARF because he didn't drink enough. Sister- no changes. Son is OK. 12/25- Dad still doing OK at 97. Sister is obese (Colleen Keen) with DM. (adopted granddaughter is 1 year old) 04/27- Dad 2 weeks ago. coherent (till last 24 hours) and pain free. Hx of heart problems. Sister doing OK. 05/31- Sister OK. Son doing OK 06/02: Son and grandkids healthy. 06/03. Family OK. 06/04: Son and grand kids. 06/05: All OK. Medical History No medical history recorded. Gynecological HistoryNo gynecological history recorded. Obstetrics History GPAL:G 0 P 0 0 0 0 Immunizations Vaccine Type Date Status Note Provider Nam e and Address Organization Details Recorded Time Influenza, split virus, trivalent, preservative 1 completed Not Available [facility] 05/31/2019 02:18:13 pneumococcal polysaccharide PPV23 2 completed Not Available [facility] 05/31/2019 02:14:32 Novel [id number] 0 completed Not Available [facility] 05/31/2019 02:17:43 Influenza, high-dose, trivalent, PF 5 completed Linda Arriola COMMISS[employer]IATION [address] [place] [address], [id number], [facility] 04/16/2015 15:01:14 Influenza, high-dose, trivalent, PF 0 completed AISLINN Bailey, [facility] 05/17/2020 15:20:57 COVID-19, mRNA, LNP-S, PF, 100 mcg/0.5mL dose or 50 mcg/0.25mL dose 1 completed Emelina Maldonado CARDIOLOGY TEACHER null, [facility] 11/26/2020 14:01:35 COVID-19, mRNA, LNP-S, PF, 100 mcg/0.5mL dose or 50 mcg/0.25mL dose 1 completed Emelina Maldonado, CARDIOLOGY TEACHER null, [facility] 11/26/2020 14:02:04 COVID-19, mRNA, LNP-S, PF, 50 mcg/0.5 mL dose 1 completed Shae Lively, CARDIOLOGY TEACHER null, [facility] 05/17/2022 09:44:53 COVID-19, mRNA, LNP-S, PF, 50 mcg/0.5 mL dose 2 completed Shae Lively, CARDIOLOGY TEACHER null, [facility] 05/17/2022 09:45:00 COVID-19, mRNA, LNP-S, bivalent, PF, 3 mcg/0.2 mL dose 2 completed Shae Lively, CARDIOLOGY TE[facility] 09:45:31 Past Encounters Encounter ID Performer Location Encounter Start Date Encounter Closed Date Diagnosis/Indication Diagnosis SNOMED-CT Code Diagnosis ICD10 Code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
--- OUTSIDE RECORDS SUMMARY | 2024-06-12 17:53 | XMS_ITS | Clinical Summary ---
Author Organization [facility] Address [facility] [place] [address] Care Team Providers Care It Network Engineer Name Role Phone Eusebio House MD Primary Care Provider [phone] Allergies No known active allergies Medications Medication Sig Dispensed Refills Start Date End Date Status CIS Free Text Med - domperidone 09/13/2006 Active Estradiol (MENOSTAR) 14 mcg/24 hr PTWK 09/13/2006 Active estradiol (ESTRING) 2 mg vaginal ring 09/13/2006 Active CA CARBONATE/VITAMIN D3/VIT K (VIACTIV ORAL) 09/13/2006 A ctive multivitamin (THERAGRAN) tablet 09/13/2006 Active dronabinol (MARINOL) 2.5 mg capsule 2.5 MG = 1 Capsule(s), PO, Four times daily 12/17/2006 Active Social History Tobacco Use Types Packs/Day Years Used Date Smoking Tobacco: Never Assessed Sex and Gender Information Value Date Recorded Sex Assigned at Not on file Gender Identity Not on file Sexual Orientation Not on file Plan of Treatment Health Maintenance Due Date Last Done Comments Hepatitis C Screening 1963 Tetanus/Diphtheria/Pertussis Vaccines (1 - Tdap) 09/28 Pneumoccocal Vaccine: 50+ (1 of 1 - PCV) 1996 Zoster vaccine (1 of 2) 1996 Advance Directive 2001 Bone Density Scan 09/29/2011 RSV Vaccine (1 - 1-dose 75+ series) 2021 Covid-19 Vaccine (1 - 2023-25 season) 2024 Influenza (Flu) vaccine (1 o f 1 - Influenza standard series) 01/13/2024 Care Teams It Network Engineer Relationship Specialty Start Date End Date Eusebio House MD PCP - General 04/05/10
== END 2024-06-12 13:59 | disposition home or self-care (01) ==
LOC: HO.MAMMO 13:58
PROVIDERS: PCP Internal Medicine; Visit Provider Internal Medicine Endocrinology, Diabetes & Metabolism
DX: Z13.820 Encounter for screening for osteoporosis (principal); Z78.0 Asymptomatic menopausal state
CPT/HCPCS: 77080

== ENCOUNTER → 2024-06-12 14:00 | Outpatient (BNV) | payer MEDICARE, SELFPAY | PROVIDERS: PCP Internal Medicine; Visit Provider Radiology Diagnostic Radiology | DX: E28.39 Other primary ovarian failure (principal) | CPT/HCPCS: 77080 ==